=== PATIENT | male | born 1980 | race Caucasian/White ===

== ENCOUNTER 2019-03-24 04:59 | Inpatient (IN) | payer OTHER ==
[2019-03-23 10:22] VITALS: BMI 24.5
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
[2019-03-24] MEDS ORDERED: fentaNYL CITRATE 250 MCG/5 ML VIAL ONE (07:16)
[2019-03-24] MEDS ORDERED: MIDAZOLAM HCL 2 MG/2 ML SINGLE DOSE VIAL ONE ×2 (07:16→09:22)
[2019-03-24] MEDS ORDERED: ROCURONIUM BROMIDE 50 MG/5 ML SYRINGE ONE ×3 (07:16→11:37)
[2019-03-24] MEDS ORDERED: THROMBIN (BOVINE) 20,000 UNIT VIAL TP ONE (07:16)
[2019-03-24] MEDS ORDERED: GENTAMICIN SO4 80 MG/2 ML VIAL ONE (07:16)
[2019-03-24] MEDS ORDERED: SUCCINYLCHOLINE CHLORIDE 200 MG/10 ML SYRINGE ONE (07:16)
[2019-03-24] MEDS ORDERED: BUPIVACAINE HCL/PF 0.5% (5MG/ML) 10 ML VIAL ONE ×2 (07:16→10:04)
[2019-03-24] MEDS ORDERED: PROPOFOL 20 ML ONE ×13 (07:16→12:26)
[2019-03-24] MEDS ORDERED: LIDOCAINE HCL 2% JELLY 10 ML CARTRIDGE ONE (07:31)
[2019-03-24] MEDS ORDERED: DESFLURANE GAS 240 ML BOTTLE IH ONE (07:31)
[2019-03-24] MEDS ORDERED: KETAMINE HCL 200 MG/20 ML VIAL ONE ×2 (07:36→11:00)
[2019-03-24] MEDS ORDERED: LIDOCAINE 1%-EPI 1:100,000 30 ML MDV IJ ONE ×2 (07:39→10:04)
--- NOTE | 2019-03-24 07:52 | HP ---
History & Physical Update - History History: No Change - Physical Physical: No Change - Assessment Assessment: No Change - Plan Plan: No Change (no changes since visit with Dr Saba on 03/23/19)
[2019-03-24] MEDS ORDERED: VANCOMYCIN 1,000 MG VIAL (RESTRICTED TO ID ONLY) ONE (07:56)
[2019-03-24] MEDS ORDERED: ceFAZolin SODIUM 1 GM VIAL ONE ×4 (07:57→23:47)
[2019-03-24] MEDS ORDERED: SODIUM CHLORIDE 0.9% P/F 10 ML VIAL IJ ONE ×2 (07:57→11:48)
[2019-03-24] MEDS ORDERED: EPHEDRINE SULFATE/0.9% NACL/PF 50 MG/10 ML SYRINGE NR ONE (08:19)
[2019-03-24] MEDS ORDERED: HYDROmorphone HCl 2 MG/ML VIAL ONE ×2 (08:34→08:41)
[2019-03-24] MEDS ORDERED: LIDOCAINE 1%/EPI 1:100000 (50 ML MULTI DOSE VIAL) NR ONE (08:56)
[2019-03-24] MEDS ORDERED: VANCOMYCIN 1,000 MG VIAL (RESTRICTED TO ID ONLY) IVPB ONE (08:58)
[2019-03-24] MEDS ORDERED: ceFAZolin SODIUM 1 GM VIAL IVPB ONE ×2 (09:02→11:45)
[2019-03-24] MEDS ORDERED: BUPIVACAINE LIPOSOME/PF (EXPAREL) 266 MG/20 ML VIAL ONE (10:04)
[2019-03-24] MEDS ORDERED: BUPIVACAINE HCL/PF 0.5% (5 MG/ML) 30 ML VIAL IJ ONE (10:42)
[2019-03-24] MEDS ORDERED: BUPIVACAINE LIPOSOME/PF (EXPAREL) 266 MG/20 ML VIAL NR ONE (10:42)
[2019-03-24] MEDS ORDERED: NEOSTIGMINE METHYLSULFATE 0.5 MG/1 ML - 10 ML MDV ONE (12:28)
[2019-03-24] MEDS ORDERED: GLYCOPYRROLATE 0.2 MG/1 ML VIAL ONE (12:28)
[2019-03-24] MEDS ORDERED: diphenhydrAMINE HCL 25 MG CAPSULE (FP) PO PRN (12:41)
[2019-03-24] MEDS ORDERED: HYDROmorphone *PCA* 10MG/50ML DISP.SYRIN ONE (13:21)
[2019-03-24] MEDS ORDERED: ACETAMINOPHEN 325 MG TABLET (FP) PO PRN (13:24)
[2019-03-24] MEDS ORDERED: ACETAMINOPHEN 1000 MG/100 ML VIAL (NON FORMULARY) IVPB ONE (13:30)
[2019-03-24] MEDS ORDERED: oxyCODONE HCL 10 MG SUSTAINED ACTING TABLET ONE (13:32)
[2019-03-24] MEDS ORDERED: traMADol HCL 50 MG TABLET ONE (13:32)
--- NOTE | 2019-03-24 13:32 | OP ---
Operative Note - Note: Operative Date: 03/24/19 Pre-Operative Diagnosis: cervical instability, cervical stenosis. Cervical Myelopathy Operation: Expoloration of spinal fusion, removal of spinal cord stimulator, C3- C7 laminectomies with yarsani of lordosis with lateral mass instrumentation , C6 corpectomy with yarsani of lordosis reconstruction with peek cage and anterior plating Post-Operative Diagnosis: Same as Pre-op Surgeon: Dario Saba Pump Station Operator: Heidy Angela Anesthesiologist/OUTSOLE CEMENTER MACHINE: Oswaldo Kirk Anesthesia: General, Local Estimated Blood Loss (mls): 55 Drains & Tubes with Location: #1 JOVANI posterior right paravetebral. #2 JOVANI anterior right neck Drains, Volume Out (mls): 950 (urine) Fluid Volume Replaced (mls): 1,350
[2019-03-24] MEDS ORDERED: ACETAMINOPHEN INJECTION 100 ML IVPB ONE (13:33)
[2019-03-24] MEDS ORDERED: HYDROmorphone *PCA* 10MG/50ML DISP.SYRIN PCA SCH (16:00)
[2019-03-24] MEDS ORDERED: HYDROmorphone *PCA* 10MG/50ML DISP.SYRIN PCA ONE (16:10)
[2019-03-24] MEDS ORDERED: CEFAZOLIN 1 GM/D5W 1 GM/50 ML BAG IVPB SCH (16:30)
[2019-03-24] MEDS: LACTATED RINGERS SOLUTION 1,000 ML/1,000 ML INFUS.BAG IV SCH (17:54)
[2019-03-24] MEDS: DOCUSATE SODIUM 100 MG CAPSULE (FP) PO SCH ×2 (17:55→21:27)
[2019-03-24] MEDS ORDERED: CEFAZOLIN 1 GM in DEXTROSE 5%-WATER - 50 ML IVPB SCH (18:00)
[2019-03-24] MEDS: ONDANSETRON 4 MG/2 ML VIAL IVPUSH PRN ×2 (19:05→21:40)
[2019-03-24] MEDS ORDERED: ACETAMINOPHEN 1000 MG/100 ML VIAL (NON FORMULARY) IVPB PRN (19:43)
[2019-03-24] MEDS ORDERED: DEXTROSE 5%-WATER - 50 ML IVPB ONE ×2 (19:44→23:47)
[2019-03-24] MEDS: CEFAZOLIN 1 GM in DEXTROSE 5%-WATER - 50 ML IVPB SCH (20:35)
[2019-03-24] MEDS ORDERED: traMADol HCL 50 MG TABLET PO PRN (20:58)
[2019-03-24] MEDS ORDERED: oxyCODONE HCL 5 MG TABLET PO PRN (20:59)
[2019-03-24] MEDS ORDERED: MORPHINE SULFATE 2 MG/ML VIAL IVPUSH PRN (21:01)
[2019-03-24] MEDS ORDERED: HEPARIN NA (PORCINE) 5,000 UNITS/ML 1ML VIAL SQ SCH (22:00)
[2019-03-24] MEDS ORDERED: diazePAM 5 MG TABLET PO SCH (22:00)
[2019-03-24] MEDS ORDERED: oxyCODONE HCL 10 MG SUSTAINED ACTING TABLET PO SCH (22:00)
[2019-03-25] MEDS: LACTATED RINGERS SOLUTION 1,000 ML/1,000 ML INFUS.BAG IV SCH (00:30)
[2019-03-25] MEDS: diazePAM 5 MG TABLET PO PRN ×2 (01:14→06:35)
[2019-03-25] MEDS: CEFAZOLIN 1 GM in DEXTROSE 5%-WATER - 50 ML IVPB SCH ×2 (01:20→09:27)
[2019-03-25] MEDS: ONDANSETRON 4 MG/2 ML VIAL IVPUSH PRN ×2 (03:39→09:27)
[2019-03-25] MEDS ORDERED: MORPHINE SULFATE 2 MG/ML VIAL IVPUSH ONE (03:47)
[2019-03-25] MEDS: HYDROmorphone *PCA* 10MG/50ML DISP.SYRIN PCA SCH ×3 (04:35→16:47)
[2019-03-25] MEDS: ACETAMINOPHEN 1000 MG/100 ML VIAL (NON FORMULARY) IVPB SCH ×3 (04:40→22:10)
[2019-03-25] MEDS: DOCUSATE SODIUM 100 MG CAPSULE (FP) PO SCH ×3 (05:58→22:10)
--- NOTE | 2019-03-25 08:32 | PN ---
Progress Note (short form) - Note Progress Note: Neurosurgery POD#1 Expoloration of spinal fusion, removal of spinal cord stimulator, C3-C7 laminectomies with bahai of lordosis with lateral mass instrumentation, C6 corpectomy with bahai of lordosis reconstruction with peek cage and anterior plating Patient seen and examined at bedside, c/o some issues with pain control overnight which was managed by anesthesia. Currently patient is awake and comfortable. I have spoken with the anesthesia team this morning and they have seen the patient and together a detailed pain regime going forward. He has been tolerating clears but has not been out of bed yet. The patient states he is still having mixed pain and paresthesias in his extremities which is his baseline. He denies any CP, SOB, N/V/D fever or chills. Vital Signs Temp 98.4 F 03/25/19 04:12 Pulse 112 H 03/25/19 07:32 Resp 20 03/25/19 07:32 BP 142/79 03/25/19 07:32 Pulse Ox 98 03/25/19 07:32 Intake & Output 03/24/19 03/24/19 03/25/19 11:59 23:59 11:59 Intake Total 8156 462 2274 Output Total 980 850 Balance 370 -300 1500 Intake: IV 3469 120 3662 LACTATED RINGERS SOLUTION 1400 1,000 ml In 1,000 ml @ 125 mls/hr IV ASDIR PRATIK Rx#:[id number] IVPB 50 100 Output: Drainage 90 Anterior Neck 10 Posterior Neck 50 Urine 925 760 Patel 500 Estimated Blood Loss 55 Other: Voiding Method Indwelling Catheter Weight Measurement Method Standing Scale CBC, BMP 03/25/19 07:45 03/25/19 07:45 PE: A&Ox3, NAD Unlabored resp on RA C-Spine posterior: incision C/D/I with surrounding tissue intact, no evidence of tracking erythema, edema no evidence of collection or d/c. Posterior drain removed with tip fully intact, drain site clean and dry with no active d/c. drain site sealed with dermabond and dressing. Anterior: incision incision C/D/I-flat with surrounding tissue intact, no evidence of tracking erythema, edema, no evidence of collection or d/c. Trachea midline, no deviation. anterior drain removed with tip fully intact, drain site clean and dry with no active d/c. drain site sealed with dermabond and dressing. UE information technology program manager, biceps/triceps strength Right 3/5, left 5/5 (at baseline) B/L LE compartments soft, supple and non-tender to palpation with +2 DP pulses. right 3/5 dorsi/plantar flexion (baseline), left 5/5 Problem List - Problems (1) Cervical cord compression with myelopathy Assessment/Plan: POD#1 Exploration of spinal fusion, ACDF, C3-C7 laminectomy/decompression with fusion. Pain currently controlled, doing well. 1) Continue patel as patient has neurogenic bladder and needs to stand and physically push on bladder to void. Will plan for d/c in AM 2) Continue DVT prophylaxis with SQ heparin, scds and early ambulation 3) Pain control per anesthesia 4) OOB with PT as tolerated 5) Continue C-collar 23hrs/day as discussed with patient 6) No pillow behind head- ok for pillow behind back 7) Continue IV while on WORKFORCE MANAGEMENT COORDINATOR 8) Advance diet as tolerated Evaluation and plan discussed with Dr Saba Code(s): G95.20 - UNSPECIFIED CORD COMPRESSION
[2019-03-25 08:50] LABS: HEMATOCRIT 41.5 % (35.4-49); HEMOGLOBIN 14.1 GM/dL (11.7-16.9); MCHC 33.9 g/dl (32.0-35.9); MEAN CELL VOLUME 91.5 fl (80-96); MEAN PLT VOLUME 7.6 fl (7.5-11.1); PLATELET COUNT 195 K/MM3 (134-434); RBC 4.54 M/mm3 (4.00-5.60); RDW 14.1 % (11.9-15.9); WHITE BLOOD COUNT 13.8 K/mm3 (4.0-10.0)
[2019-03-25 08:54] LABS: BLOOD UREA NITROGEN 16.7 mg/dL (7-18); CALCIUM 8.8 mg/dL (8.5-10.1); POTASSIUM 3.9 mmol/L (3.5-5.1)
[2019-03-25] MEDS ORDERED: PT OWN MED DRAWER 7, Y5N ONE (09:17)
[2019-03-25] MEDS ORDERED: ceFAZolin SODIUM 1 GM VIAL ONE (09:18)
[2019-03-25] MEDS ORDERED: DEXTROSE 5%-WATER - 50 ML IVPB ONE (09:18)
[2019-03-25] MEDS: POLYETHYLENE GLYCOL 3350 119 GM BTL PO SCH (09:25)
[2019-03-25] MEDS ORDERED: FOLIC ACID 1 MG TABLET (FP) PO SCH (10:00)
[2019-03-25] MEDS ORDERED: FERROUS SO4 325 MG TABLET (FP) PO SCH (10:00)
[2019-03-25] MEDS ORDERED: HEPARIN NA (PORCINE) 5,000 UNITS/ML 1ML VIAL SQ SCH ×2 (10:00→14:00)
[2019-03-25] MEDS ORDERED: oxyCODONE HCL 5 MG TABLET PO PRN (10:42)
[2019-03-25] MEDS ORDERED: morphine CARPU-JECT 2 MG/1 ML DISP.SYRIN IVPUSH PRN (10:43)
[2019-03-25] MEDS ORDERED: oxyCODONE HCL 10 MG SUSTAINED ACTING TABLET PO SCH (10:45)
--- NOTE | 2019-03-25 10:49 | PN ---
Progress Note (short form) - Note Progress Note: 39M POD1 s/p anterior and posterior cervical spine laminectomy and fusion under GA-ETT. Pt c/o severe uncontrolled pain. Discussed at length with patient and nurse. D/C ACCOUNT ASSISTANT. Start IV tylenol, oxycontin, valium on a schedule. Start oxycodone and IVP morphine for breakthrough. Add colace, pepcid and zofran on a schedule. Will reassess in a few hours.
[2019-03-25] MEDS ORDERED: morphine SULFATE 4 MG/ML VIAL IVPUSH PRN (10:52)
[2019-03-25] MEDS: diazePAM 5 MG TABLET PO SCH ×2 (11:37→18:53)
[2019-03-25] MEDS: FAMOTIDINE 20 MG/50 ML IVPB 20 MG/50 ML MG IVPB SCH ×2 (11:38→22:10)
[2019-03-25] MEDS: ONDANSETRON 4 MG/2 ML VIAL IVPUSH SCH ×2 (11:43→18:53)
--- NOTE | 2019-03-25 14:58 | PN ---
Progress Note (short form) - Note Progress Note: Pain follow up Reevaluated in the afternoon. Not enough pain relief. A/P discontinue the TOBACCO BUYER and IV Morphine. Writing 4 mg of Dilaudid PO q 4. Myriam Reed MD.
[2019-03-25] MEDS ORDERED: morphine SULFATE 4 MG/ML VIAL ONE (15:35)
[2019-03-25] MEDS ORDERED: morphine SULFATE 4 MG/ML VIAL IVPUSH ONE ×2 (15:45→16:00)
[2019-03-26] MEDS: ONDANSETRON 4 MG/2 ML VIAL IVPUSH SCH ×3 (02:07→17:53)
[2019-03-26] MEDS: diazePAM 5 MG TABLET PO SCH ×3 (02:07→17:53)
[2019-03-26] MEDS: ACETAMINOPHEN 1000 MG/100 ML VIAL (NON FORMULARY) IVPB SCH (04:08)
[2019-03-26] MEDS: HYDROmorphone *PCA* 10MG/50ML DISP.SYRIN PCA SCH ×2 (08:42→17:19)
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
--- NOTE | 2019-03-26 09:47 | PN ---
Progress Note (short form) - Note Progress Note: 39M POD1 s/p anterior and posterior laminectomy and fusion under GA-ETT with post op course remarkable for difficulty in managing post operative pain. Pt relatively comfortable with dilaudid IV AGENCY SERVICE COORDINATOR. Patient expressed interest in weaning off of AGENCY SERVICE COORDINATOR today. AGENCY SERVICE COORDINATOR history reveals very frequent AGENCY SERVICE COORDINATOR demand dose request, with multiple undelivered doses for too frequent requests. Discussed keeping Tylenol and valium on fixed schedule, and adding oxycontin q8h on fixed schedule with goal of decreasing AGENCY SERVICE COORDINATOR requirement. Will reassess later in day for possibility of transitioning AGENCY SERVICE COORDINATOR demand doses to oral narcotic demand doses. Patient and nurse understand and agree with above plan.
[2019-03-26] MEDS ORDERED: oxyCODONE HCL 20 MG SUSTAINED ACTING TABLET PO SCH (10:00)
[2019-03-26] MEDS: DOCUSATE SODIUM 100 MG CAPSULE (FP) PO SCH ×2 (10:07→21:43)
[2019-03-26] MEDS: FAMOTIDINE 20 MG/50 ML IVPB 20 MG/50 ML MG IVPB SCH ×2 (10:08→21:43)
[2019-03-26] MEDS: POLYETHYLENE GLYCOL 3350 119 GM BTL PO SCH (10:08)
[2019-03-26] MEDS ORDERED: oxyCODONE HCL 10 MG SUSTAINED ACTING TABLET PO SCH (11:27)
[2019-03-26] MEDS: oxyCODONE HCL 10 MG SUSTAINED ACTING TABLET PO SCH ×2 (11:32→21:43)
[2019-03-26] MEDS ORDERED: HEPARIN NA (PORCINE) 5,000 UNITS/ML 1ML VIAL SQ SCH (22:00)
[2019-03-27] MEDS: ONDANSETRON 4 MG/2 ML VIAL IVPUSH SCH ×3 (01:47→17:47)
[2019-03-27] MEDS: diazePAM 5 MG TABLET PO SCH ×3 (01:47→17:47)
--- NOTE | 2019-03-27 09:05 | PN ---
Progress Note (short form) - Note Progress Note: 39M POD3 s/p anterior posterior cervical laminectomy and fusion under GA-ETT. Pain 4-5/10. C/o symptoms c/w acid reflux and constipation. AVSS SINK MAKER usage minimal after starting oxycontin 20 bid yesterday. Discussed continuing oxycontin 20 bid, tylenol q6h, valium 5 q6h. Will enter Morphine 4mg IV q4h prn severe pain for breakthrough. D/C nasal cannula and continue continuous pulsoximetry x 24 hours prior to discharge to demonstrate that patient can tolerate this regimen prior to discharge.
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
[2019-03-27] MEDS: FAMOTIDINE 20 MG/50 ML IVPB 20 MG/50 ML MG IVPB SCH ×2 (09:50→22:19)
[2019-03-27] MEDS: DOCUSATE SODIUM 100 MG CAPSULE (FP) PO SCH ×2 (09:55→22:17)
[2019-03-27] MEDS: POLYETHYLENE GLYCOL 3350 119 GM BTL PO SCH (09:55)
[2019-03-27] MEDS: ACETAMINOPHEN 325 MG TABLET (FP) PO SCH ×4 (09:56→23:12)
[2019-03-27] MEDS: oxyCODONE HCL 10 MG SUSTAINED ACTING TABLET PO SCH ×2 (09:57→22:17)
[2019-03-27] MEDS: HEPARIN NA (PORCINE) 5,000 UNITS/ML 1ML VIAL SQ SCH ×3 (10:16→22:19)
[2019-03-27] MEDS ORDERED: PT OWN MED DRAWER 7, Y5N ONE ×3 (12:34→19:21)
[2019-03-27] MEDS: BENZOCAINE/MENTH/CETYLPYRD CL 1 EACH LOZENGE MM PRN ×3 (13:30→17:22)
[2019-03-27] MEDS: morphine SULFATE 4 MG/ML VIAL IVPUSH PRN (17:14)
[2019-03-28] MEDS: diazePAM 5 MG TABLET PO SCH ×2 (01:52→11:05)
[2019-03-28] MEDS: morphine SULFATE 4 MG/ML VIAL IVPUSH PRN ×3 (02:43→13:17)
[2019-03-28] MEDS: ACETAMINOPHEN 325 MG TABLET (FP) PO SCH ×2 (06:06→15:46)
[2019-03-28] MEDS: HEPARIN NA (PORCINE) 5,000 UNITS/ML 1ML VIAL SQ SCH ×2 (06:07→15:49)
[2019-03-28] MEDS ORDERED: PT OWN MED DRAWER 7, Y5N ONE ×3 (06:13→09:43)
[2019-03-28] MEDS: BENZOCAINE/MENTH/CETYLPYRD CL 1 EACH LOZENGE MM PRN (06:14)
[2019-03-28] MEDS: oxyCODONE HCL 10 MG SUSTAINED ACTING TABLET PO SCH (09:33)
[2019-03-28] MEDS: DOCUSATE SODIUM 100 MG CAPSULE (FP) PO SCH (09:33)
[2019-03-28] MEDS: FAMOTIDINE 20 MG/50 ML IVPB 20 MG/50 ML MG IVPB SCH (09:34)
[2019-03-28] MEDS: POLYETHYLENE GLYCOL 3350 119 GM BTL PO SCH (09:34)
[2019-03-28 09:40] VITALS: BP 143/81; PULSE 122; TEMP 98.2
--- NOTE | 2019-03-30 17:11 | PATH ---
Surgical Pathology Report Patient Name: INGE HENNESSY Med. Rec. #: [id number] /Age/Gender: 1980 (Age: 39) / M Account: [id number] Location: [facility] Taken: 03/24/2019 Received: 03/25/2019 Reported: 03/30/2019 Physicians: Dario Alvarado M.D. Specimen(s) Received REMOVED SPINAL CORD Clinical History History of spinal surgery Final Diagnosis SPINAL CORD STIMULATOR, REMOVAL: AVIAN KEEPER. MACROSCOPIC DIAGNOSIS. Electronically Signed Vannessa Yanez M.D. Gross Description Received fresh labeled "removed spinal cord stimulator," is a 6.7 x 5.0 x 1.3 cm campos metallic device with the following inscription: "PROCLAIM SN: [id number]." The specimen has 2 attached campos metallic wires averaging 38 cm in length. There are 2 additional portions of wire attached to each other, separately received within the same container, averaging 51 cm in length. No soft tissue is present. No sections are submitted, gross only. /03/26/2019 saudi03/26/2019
== END 2019-03-28 17:00 | disposition home or self-care (01) | DRG 321 ==
LOC: JSAMEDAYSX 04:59 → EDBD 08:00 → J8W 16:51 → J4S 03-25 17:56
PROVIDERS: ADMIT Neurological Surgery; ATTEND Neurological Surgery
PROC: 0JPT0MZ Removal of Stimulator Generator from Trunk Subcutaneous Tissue and Fascia, Open Approach (ICD-10-PCS; 2019-03-24)
PROC: 0PB30ZZ Excision of Cervical Vertebra, Open Approach (ICD-10-PCS; 2019-03-24)
PROC: 00NW0ZZ Release Cervical Spinal Cord, Open Approach (ICD-10-PCS; 2019-03-24)
PROC: 0RG20AJ Fusion of 2 or more Cervical Vertebral Joints with Interbody Fusion Device, Posterior Approach, Anterior Column, Open Approach (ICD-10-PCS; 2019-03-24)
PROC: 0RG2071 Fusion of 2 or more Cervical Vertebral Joints with Autologous Tissue Substitute, Posterior Approach, Posterior Column, Open Approach (ICD-10-PCS; 2019-03-24)
PROC: B01BZZZ Fluoroscopy of Spinal Cord (ICD-10-PCS; 2019-03-24)
PROC: 0JX70ZZ Transfer Back Subcutaneous Tissue and Fascia, Open Approach (ICD-10-PCS; 2019-03-24)
PROC: 00PV0MZ Removal of Neurostimulator Lead from Spinal Cord, Open Approach (ICD-10-PCS; principal; 2019-03-24 08:00)
DX: M48.02 Spinal stenosis, cervical region (principal); M47.12 Other spondylosis with myelopathy, cervical region; M40.292 Other kyphosis, cervical region; M53.2X2 Spinal instabilities, cervical region; N31.9 Neuromuscular dysfunction of bladder, unspecified; K59.00 Constipation, unspecified; G95.20 Unspecified cord compression
CPT/HCPCS: 36415; 72125-TC; 76000-TC-FY; 80048; 80053; 81003; 85025; 85027; 85610; 86850; 86900; 86901; 88300-TC; 93005; 93010; 94010; 94760; 97116-GP; 97162-GP; J0131; J1644